=== PATIENT | female | born 1940 | race Caucasian/White ===

== ENCOUNTER 2019-03-12 09:38 | Day surgery (SDC) | payer OTHER ==
[~2019-03-12] VITALS: Ht 160 cm; Wt 76.0 kg
[~2019-03-12 09:38] MED LIST: ATOR10 PO; FLUSAL1005 IH; FLUSAL2505 INH; LEVSOD100 PO; LEVSOD75 PO; LISI20 PO; Lovastatin10 MG PO; METF500 PO; Omeprazole20 M1 PO; TIOT18 IH; TIOT18 INH; Ventolin Soln3 ML INH
--- NOTE | 2019-03-12 11:37 | NUR ---
03/12/19 1137 Ana Puga PT. USES O2 AT HOME AT 2L/NC. PT. VERBALIZES DOESN'T NEED IT JUST SITTING. O2 OFF PT. TO GET BACK TO [facility] & WILL PLACE HER ON 2L/NC IN [facility].
== END 2019-03-12 12:10 | disposition home or self-care (01) ==
LOC: ORSCSDS 09:38
PROVIDERS: Internal Medicine Gastroenterology
PROC: 0DBK8ZX Excision of Ascending Colon, Via Natural or Artificial Opening Endoscopic, Diagnostic (ICD-10-PCS; principal; 2019-03-12 11:15)
PROC: 0DBM8ZX Excision of Descending Colon, Via Natural or Artificial Opening Endoscopic, Diagnostic (ICD-10-PCS; principal; 2019-03-12 11:15)
DX: Z12.11 Encounter for screening for malignant neoplasm of colon (principal); D12.4 Benign neoplasm of descending colon; K57.30 Diverticulosis of large intestine without perforation or abscess without bleeding; K64.8 Other hemorrhoids; Z86.010 Personal history of colon polyps; J44.9 Chronic obstructive pulmonary disease, unspecified; E03.9 Hypothyroidism, unspecified; E78.5 Hyperlipidemia, unspecified; I10 Essential (primary) hypertension; Z79.899 Other long term (current) drug therapy; Z87.891 Personal history of nicotine dependence
CPT/HCPCS: 82947; 88305; J2704; J7120

== ENCOUNTER 2022-05-06 11:54 | Day surgery (SDC) | payer OTHER ==
[~2022-05-06] VITALS: Ht 160 cm; Wt 71.5 kg
--- NOTE | 2022-05-06 12:26 | NUR ---
05/06/22 1226 Paris Bowling AT 1213 ONESIMOET AT 1215
== END 2022-05-06 13:55 | disposition home or self-care (01) ==
LOC: ORSCSDS 11:54
PROVIDERS: Ophthalmology
PROC: 08DJ3ZZ Extraction of Right Lens, Percutaneous Approach (ICD-10-PCS; principal; 2022-05-06 13:00)
DX: H25.11 Age-related nuclear cataract, right eye (principal); I10 Essential (primary) hypertension; R06.02 Shortness of breath; K21.9 Gastro-esophageal reflux disease without esophagitis; J45.909 Unspecified asthma, uncomplicated; J44.9 Chronic obstructive pulmonary disease, unspecified; Z79.899 Other long term (current) drug therapy
CPT/HCPCS: 82947; J2001; J2250; J3010; J3301; J7040; V2632

== ENCOUNTER 2022-05-20 11:52 | Day surgery (SDC) | payer OTHER ==
[~2022-05-20] VITALS: Ht 160 cm; Wt 70.9 kg
--- NOTE | 2022-05-20 13:09 | NUR ---
05/20/22 1309 Paris Bowling IN AT 1254 DELILAH IN AT 1256
== END 2022-05-20 14:20 | disposition home or self-care (01) ==
LOC: ORSCSDS 11:52
PROVIDERS: Ophthalmology
PROC: 08DK3ZZ Extraction of Left Lens, Percutaneous Approach (ICD-10-PCS; principal; 2022-05-20 13:00)
DX: H25.12 Age-related nuclear cataract, left eye (principal); Z96.1 Presence of intraocular lens; J44.9 Chronic obstructive pulmonary disease, unspecified; I10 Essential (primary) hypertension; Z99.81 Dependence on supplemental oxygen; Z87.891 Personal history of nicotine dependence; Z79.899 Other long term (current) drug therapy
CPT/HCPCS: J2001; J2250; J3010; J3301; J7040; V2632